=== PATIENT | male | born 1985 | race Caucasian/White ===

== ENCOUNTER 2020-05-29 11:44 | Emergency (ER) | payer OTHER ==
[~2020-05-29] VITALS: Ht 167.6 cm; Wt 72.6 kg
[2020-05-29] MEDS ORDERED: KETO10TA2 PO (15:36)
[2020-05-29] MEDS ORDERED: NORFLEX100MG PO (15:36)
== END 2020-05-29 15:49 | disposition home or self-care (01) ==
LOC: ER 11:44
DX: R53.81 Other malaise (principal); R07.89 Other chest pain; F41.8 Other specified anxiety disorders

== ENCOUNTER 2022-04-03 19:59 | Emergency (ER) | payer OTHER ==
[~2022-04-03] VITALS: Ht 165.1 cm; Wt 81.6 kg
[~2022-04-03 19:59] MED LIST: KETO10TA2 PO; NORFLEX100MG PO
== END 2022-04-03 23:36 | disposition home or self-care (01) ==
LOC: ER 19:59
DX: J11.1 Influenza due to unidentified influenza virus with other respiratory manifestations (principal); Z20.828 Contact with and (suspected) exposure to other viral communicable diseases

== ENCOUNTER 2025-09-21 14:52 | Emergency (ER) | payer OTHER ==
[~2025-09-21] VITALS: Ht 162.6 cm; Wt 72.6 kg
[2025-09-21] MEDS ORDERED: KETOROLAC TROMETHAMINE 30 MG VIAL IM ONE (16:30)
[2025-09-21] MEDS ORDERED: CEFTRIAXONE SODIUM 1,000 MG VIAL IM ONE (16:30)
[2025-09-21] MEDS ORDERED: DIPHTH,PERTUSS(ACELL),TET VAC 0.5 ML VIAL IM ONE (16:30)
[2025-09-21] MEDS ORDERED: DIPHTH,PERTUSS(ACELL),TET VAC 0.5 ML SYRINGE IM ONE (16:52)
[2025-09-21] MEDS ORDERED: LIDOCAINE HCL/MPF 1% 5ML VIAL IJ ONE (16:52)
[2025-09-21] MEDS ORDERED: CEFTRIAXONE SODIUM 1,000 MG VIAL ONE (16:52)
[2025-09-21] MEDS ORDERED: KETOROLAC TROMETHAMINE 30 MG VIAL ONE (16:52)
[2025-09-21] MEDS ORDERED: AMOX-CLAV 875-1 EAC1 PO (17:59)
[2025-09-21] MEDS ORDERED: PEPCID AC20 MG PO (17:59)
== END 2025-09-21 18:16 | disposition home or self-care (01) ==
LOC: ER 14:52
DX: S61.451A Open bite of right hand, initial encounter (principal); W54.0XXA Bitten by dog, initial encounter; Y93.89 Activity, other specified; Y92.89 Other specified places as the place of occurrence of the external cause; Y99.8 Other external cause status
CPT/HCPCS: 73130; 90471; 90714; J1670